=== PATIENT | male | born 1950 | race Caucasian/White ===

== ENCOUNTER 2022-09-17 21:33 | Inpatient (IN) | payer MEDICARE, OTHER ==
[~2022-09-17] VITALS: Ht 175.3 cm; Wt 78.4 kg
--- NOTE | 2022-09-18 00:27 | NUR ---
pt ARRIVES TO [facility]LOOR VIA STRETCHER, AMBULATORY TO HOSPITAL BED WITH RADHA LEMA SBA, GAIT UNSTEADY. pt C/O WEAKNESS. SPO2 WNL 3L OXYGEN BY NC IN PLACE. pt STATES HE IS HOMELESS, LIVES IN [place] THAT IS VERY C[place]. HE WOULD LIKE PLACED IN A SNF AT DISCHARGE. STATES HE IS ON OHP AND HAS MEDICARE AND MEDICAID. NO PCP. STATES HE WILL NEED ONE. REPORTS THAT HE THREW ALL OF HIS MEDICATIONS AWAY AND QUIT TAKING THEM. COOPERATIVE WITH CARES. PRIMARY RN PITA IN ROOM AT THIS TIME. ISOLATION PRECAUTIONS.
--- NOTE | 2022-09-18 00:30 | NUR ---
RECEIVED REPORT FROM TACTICAL DEBRIEFER, DID TWO RN CHECK OF SKIN ON PATIENT WITH RADHA LOBO. PT SETTLED INTO ROOM, GIVEN WARM BLANKETS AND ASSESSMENTS COMPLETED. PT HAS NO COMPLAINT OF PAIN AT THIS TIME, WAS SNORING LIGHTLY, CALL LIGHT IN REACH.
--- NOTE | 2022-09-18 02:12 | NUR ---
IN PT ROOM FOR [id number] - PT APPEARS TO BE RESTING PEACEFULLY, BREATHING EVEN AND UNLABORED, NO INDICATIONS OF PAIN - CALL LIGHT IN REACH
--- NOTE | 2022-09-18 04:32 | NUR ---
IN PT ROOM FOR ROUNDING, PT RESTING ON BACK, BREATHING EVEN AND UNLABORED, NO INDICATIONS OF PAIN OR DISCOMFORT, NO COMPLAINT OF PAIN, CALL LIGHT IN REACH.
--- NOTE | 2022-09-18 05:41 | NUR ---
in pt room for rounding/collection of VS/I&O's. Was able to complete a clean catch Urine sample for pt, sent with labor delivery rn to lab. Pt has no complaint of pain, call light in reach
--- NOTE | 2022-09-18 08:00 | NUR ---
REPORT RECEIVED FROM NIGHT RN AND PT CARE RESUMED. PT. IS DROWSY BUT AWAKENS EASILY TO VOICE. ORIENTED TO ALL BUT DAY. PT. DIAPHORETIC AND SHEETS SATURATED. BEDDING AND GOWN CHANGED. PT. AMBULATED TO CHAIR ON 3L O2. O2 SAT WAS 72% AFTER. RETURNED TO 93% AFTER REST. RIGHT LUNG DIM. THROUGHOUT. ASSESSMENT COMPLETED. PT. ASSISTED WITH BREAKFAST. LEFT RESTING WITH CALL LIGHT IN REACH.
--- NOTE | 2022-09-18 08:52 | NUR ---
MED REC COMPLETE
--- NOTE | 2022-09-18 10:07 | NUR ---
0800- Pt sob , coughing up sputum, vitals are WLN. Pt states that he has no lungs and that his breathing is this short at home. Pt states that he quit a bunch of medications and felt like they made things worse. I let him know that treatment for his lungs would be avalible, he is aware of this and did not want any at this time. Will continue to monitor. Waiting for doctor rounding to identify any futher needs . Pt might benifit from vapotherm for added flow and humidification. Cpt for sputum may be a good idea as well.
--- NOTE | 2022-09-18 10:35 | NUR ---
Spoke with pt and he states he currently is living between his RV and his friends maile. His RV does not run and he states he does not have funds to pay for propane. The electrical and heat work in the RV. Pt is unclear on his hands, arms, legs. Pt states he is disabled and lives on $900 a month for disability. He does not use any DME or home meds. Pt repeatedly stays he is ready to move into a longterm. We discussed he would not be able to do this unless he qualifies. He does not believe he has alf medicaid through the state for placement. He denies working with [facility] Aging and Disability. He asks I call the Disability office as this is whom he currently works with. I will contact [facility] and see if he qualifies for any assist from Aging and disability and [facility]. Called and left a message for [facility] and Soila Bedolla at [facility].
--- NOTE | 2022-09-18 12:52 | NUR ---
DUE TO PRECAUTIONS I AM UNABLE TO VISIT PT IN PERSON. WILL FOLLOW NEEDED
--- NOTE | 2022-09-18 13:15 | NUR ---
ROUNDING ON PT. 02 SAT IS 86% ON 3L. TITRATED 02 TO MAINTAIN 02 SAT. OF 90%. RESP RATE IS 26. PT. BROUGHT DRINKS. LEFT RESTING WITH CALL LIGHT IN REACH.
--- NOTE | 2022-09-18 13:40 | NUR ---
Called [facility] and was transferred by Charlene to the housing program. Left a message updating pt's name, phone number, and needs for either housing or propane. Left my phone number if they have any questions.
--- NOTE | 2022-09-18 14:11 | NUR ---
Spoke with Soila Bedolla. 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 She suggests pt get on the long wall shear operator housing list.
--- NOTE | 2022-09-18 19:27 | NUR ---
received report from offgoing shift, hourly rounding initiated
--- NOTE | 2022-09-18 20:10 | NUR ---
in to change tele battery, urinal empited, vs taken, can of catrina provided, pt wants to remain up to the chair for a little bit longer, no further needs at this time
--- NOTE | 2022-09-18 22:00 | NUR ---
IN PT ROOM FOR ROUNDING. PT RESTING ON SIDE, EYES CLOSED, NO COMPLAINT OF PAIN OR DISCOMFORT. PT CALL LIGHT IN REACH.
--- NOTE | 2022-09-19 00:08 | NUR ---
IN PT ROOM FOR ROUNDING. PT RESTING, EYES CLOSED, NO SIGN OF PAIN OR DISCOMFORT, CALL LIGHT IN REACH.
--- NOTE | 2022-09-19 02:13 | NUR ---
IN PT ROOM FOR ROUNDING. PT 02 SATURATION SLIGHTLY DECREASED, REPOSITIONED PT TO GOOD EFFECT, NO FURTHER COMPLAINT, CALL LIGHT IN REACH.
--- NOTE | 2022-09-19 03:40 | NUR ---
pt HEARD HAVING A COUGHING EPISODE, UPDATED PRIMARY RN PITA. PRIMARY RN PITA TO OFFER PRN COUGH MEDICATION. PER PRIMARY RN, pt REFUSED TESSALON PERLES BUT ACCEPTED MUCINEX (SECOND CHOICE PER EMAR).
--- NOTE | 2022-09-19 03:59 | NUR ---
Pt showing as tachycardic on tele-monitor. Went into pt room to assess and pt has no fever, vs stable, states he is in pain and the only thing that will help is morphine and he doesn't want morphine due to taking it chronically (15 years) previously. Pt asked for and received warm blankets and 02 sensor was repositioned. no further complaints, call light in reach.
--- NOTE | 2022-09-19 04:30 | NUR ---
pt INTERMITTENTLY RESTLESS IN BED AND WHEN MOVING IN BED, SPO2 WAVE FORM IS POOR (DUE TO LOCATION OF SPO2 FINGER SENSOR PROBE). pt VERBALIZES WANT TO REST AND BE LEFT ALONE. pt CURRENTLY ON 3LNC, SPO2 UPPER 80'S BUT TRENDING UPWARDS ONCE pt RESTS STILL IN BED AND WAVE FORM IS WNL. HR TRENDING UPWARDS TO ONE TEENS TO LOW 120'S. PRIMARY RN PITA UPDATED AND MADE AWARE AND TO ASSESS pt FURTHER.
--- NOTE | 2022-09-19 04:36 | NUR ---
In pt room for rounding - pt heart rate tachycardic at 127, 02 saturation reading 86. Increased 02 to 4L NC. Pt also has low-grade fever of 100.3, refusing tylenol, will continue to monitor and notify .
--- NOTE | 2022-09-19 06:45 | NUR ---
call light answered, pt requesting water. fresh water provided and pt assisted with turning on his left side, bed alarm on for safety. pt on 8-9loxymask, cpox already in place with tele, tele leads also replaced as one lead was off of pt. spo2 94%. hr improved now 115-118. rr elevated, approx 28. dr galloway updated and to see pt in approx 30 minutes when he arrives to [facility] floor. no new orders received at this time.
--- NOTE | 2022-09-19 07:30 | NUR ---
REPORT RECEIVED FROM NIGHT RN AND PT CARE RESUMED. PT. IS ALERT AND ORIENTED TO ALL BUT DATE. HR IS 110S AND 02 SAT IS 97% ON 8L. 02 TITRATED TO 7L. RR IS 28 AND BREATHING IS SHALLOW. ASSESSMENT COMPLETED. PT. ASSISTED WITH REPOSITIONING AND BREAKFAST SET UP. LEFT RESTING WITH CALL LIGHT IN REACH.
--- NOTE | 2022-09-19 07:35 | NUR ---
PATIENT UP IN CHAIR BEFORE THIS MARKETING TRAFFIC MANAGER CAME ON SHIFT. CALL LIGHT WITHIN REACH.
--- NOTE | 2022-09-19 08:00 | NUR ---
MEDS ADMINISTERED AND R.T. IN THE ROOM.
--- NOTE | 2022-09-19 09:31 | NUR ---
PATIENT IN CHAIR LAYING ON RIGHT SIDE. VITALS AND I/O'S COMPLETED. PATIENT DID NOT WANT HIS BREAKFAST TRAY TAKEN. PT STATED, "I WILL EAT IT EVENTUALLY". PT ALSO STATED, "I DO NOT WANT MY BLOOD PRESSURE TAKEN AGAIN UNTIL TONIGHT. EVERYTIME I FALL ASLEEP YOU GUYS COME IN AND WAKE ME UP. I HAVE NOT SLEPT IN FOUR DAYS". CALL LIGHT WITHIN REACH.
--- NOTE | 2022-09-19 10:00 | NUR ---
Pt sleeping with [address] Not awakened.
--- NOTE | 2022-09-19 10:02 | NUR ---
PT. O2 SAT IS 97% ON 7L OXYMASK. TITRATED TO 5L. O2 SAT REMAINS 95%. WILL CONTINUE TO MONITOR.
--- NOTE | 2022-09-19 11:05 | NUR ---
PT. RESTING WITH EYES CLOSED. RR IS 27 AND O2 SAT IS94% ON 5L OXYMASK. CALL LIGHT IN REACH.
--- NOTE | 2022-09-19 12:03 | NUR ---
ON PRECAUTIONS, WILL FOLLOW
--- NOTE | 2022-09-19 13:17 | EKG ---
[facility] [address] [place] [address] Signed Sinus tachycardia with premature atrial complexes Low voltage QRS Septal infarct , age undetermined Abnormal ECG No previous ECGs available Confirmed by Erica Patten MD () on 09/19/2022 1:17:21 PM Electronically Signed By: ERICA PATTEN MD 09/19/22 1317 PATIENT NAME: YARIELALPHONSO HAMILTON Electrocardiogram DATE OF : 50 PHYSICIAN: ERICA PATTEN MD REPORT #: [id number] REPORT IS CONFIDENTIAL AND NOT TO BE RELEASED WITHOUT AUTHORIZATION
--- NOTE | 2022-09-19 13:30 | NUR ---
PT. DENIES NEEDS AT THIS TIME. RESTING IN CHAIR AND 02 SAT IS 94% ON 5L.
--- NOTE | 2022-09-19 13:41 | NUR ---
Second call to [facility] asking for any assist they can provide as pt will not qualify for [employer] services.
--- NOTE | 2022-09-19 15:00 | NUR ---
Patient back in chair after bedbath. Call light within reach.
--- NOTE | 2022-09-19 15:03 | NUR ---
PT. BROUGHT HOT CHOCOLATE AND WATER. 02 TITRATED TO 4L OXYMASK. HR IS 90 BPM. CALL LIGHT IN REACH.
--- NOTE | 2022-09-19 19:05 | NUR ---
RECEIVED REPORT FROM OMID GARCIA. PT RESTING IN RECLINER AND APPEARS COMFORTABLE AT THIS TIME. PT ON TELEMETRY SHOWING SINUS RHYTHM, O2 OF 94% ON RA AT THIS TIME. CALL LIGHT WITHIN REACH.
--- NOTE | 2022-09-19 21:30 | NUR ---
IN PT ROOM FOR BURRITO MAKER. PT RESTING IN RECLINER W/EYES CLOSED BUT AWAKENS TO VOICE. PT DROWSY BUT ORIENTED TO ALL BUT DATE/TIME. PT REPORTS NO PAIN, NAUSEA, N/T, DIZZINESS, OR SOB AT THIS TIME. IV SITE WNL, REMDESIVIR INFUSION BEGUN (SEE EMAR). TELEMETRY IN PLACE SHOWS HR SINUS RHYTHM AND HR IN 80'S AT THIS TIME, PULSES PRESENT THROUGHOUT. LUNGS ARE CLEAR IN UPPER BUT DIMINISHED IN BASES. PT IS ON RA W/O2 SATS AT 91% AT THIS TIME, OCCASIONAL PRODUCTIVE COUGH. PRN MUCINEX AND TESSALON PEARLS GIVEN (SEE EMAR). RR IS REGULAR BUT TACHYPNEIC AT 25 AT THIS TIME, PER PREVIOUS REPORT MD IS AWARE. BOWEL TONES ACTIVE X4. NO SIGN OF SKIN BREAKDOWN AT THIS TIME. ASKED PT IF I COULD ASSIST HIM BACK TO BED OUT OF RECLINER AND HE SAID "NO, IM SLEEPING RIGHT HERE". NICOTINE PATCH REMOVED FROM RT SHOULDER. ASKED PT IF I COULD ASSESS BACKSIDE AND HE RESPONDED "NO". PT FOLLOWING DIRECTIONS BUT SHORT RESPONSES TO QUESTIONS AT THIS TIME. CALL LIGHT WITHIN REACH, NO FURTHER NEEDS AT THIS TIME. URINAL AT BEDSIDE.
--- NOTE | 2022-09-20 00:01 | NUR ---
PT RESTING IN RECLINER W/EYES CLOSED. RESPIRATIONS ARE EVEN AND UNLABORED, NO SIGNS OF DISTRESS. O2 VIA PULSE OX READS 92% ON RA AT THIS TIME W/HR LOW 90'S. CALL LIGHT WITHIN REACH.
--- NOTE | 2022-09-20 00:18 | NUR ---
IN PT ROOM TO EMPTY URINAL PT IS AWAKE AND FLIPPING THROUGH TV CHANNELS AT THIS TIME. PT STATES DOES NOT NEED BREATHING TX AT THIS TIME, RR IS 25 AND OCCASIONAL NONPRODUCTIVE COUGH. O2 VIA CPOX READS 90% ON RA AT THIS TIME. ASSISTED PT W/PLACEMENT OF NEW DEPENDS D/T INCONTINENCE. NO SIGNS OF SKIN BREAKDOWN ON BACKSIDE, NEW DEPENDS IN PLACE, ILIR CARE PERFORMED. PT REPORTS NO FURTHER NEEDS AT THIS TIME, CALL LIGHT WITHIN REACH.
--- NOTE | 2022-09-20 02:11 | NUR ---
PT RESTING W/EYES CLOSED IN RECLINER. RESPIRATIONS ARE EVEN AND UNLABORED, NO SIGNS OF DISTRESS. RR AT THIS TIME IS 26, CPOX SHOWS SINUS RHYTHM AT THIS TIME W/O2 AT 93% AND HR AT 82. PT APPEARS COMFORTABLE. CALL LIGHT WITHIN REACH.
--- NOTE | 2022-09-20 03:45 | NUR ---
PT IN RECLINER RESTING W/EYES CLOSED. RESPIRATIONS ARE EVEN AND UNLABORED, NO SIGNS OF DISTRESS. TELEMETRY IN PLACE SHOWING SINUS RHYTHM AT THIS TIME W/HR IN 80'S. CPOX SHOWS O2 AT 89% AT THIS TIME. CALL LIGHT WITHIN REACH.
--- NOTE | 2022-09-20 05:05 | NUR ---
PT RESTING W/EYES CLOSED IN RECLINER. PT RR 26 AT THIS TIME, REGULAR, EVEN, AND NO SIGNS OF DISTRESS. CPOX SHOWS O2 OF 91%. TELEMETRY SHOWS SINUS RHYTHM W/HR IN 80'S. PT APPEARS COMFORTABLE AT THIS TIME. CALL LIGHT WITHIN REACH.
--- NOTE | 2022-09-20 06:10 | NUR ---
PT RESTING W/EYES CLOSED IN RECLINER. PT REPORTS NO PAIN, NAUSEA, N/T, DIZZINESS, SOB AT THIS TIME. NEW PULSE OX IN PLACE. OX READS 92% ON RA AT THIS TIME. TELEMETRY SHOWS SINUS RHYTHM W/HR IN 80'S. URINAL EMPTIED. NO ACUTE CHANGES FROM PREVIOUS ASSESSMENT. COARSENESS IN RUL. RESPIRATIONS ARE 27, EVEN, UNLABORED, NO SIGNS OF DISTRESS. PT STILL HAS OCCASIONAL PRODUCTIVE COUGH. PT DECLINES NEED FOR BREATHING TX AT THIS TIME. CALL LIGHT WITHIN REACH, NO FURTHER NEEDS.
--- NOTE | 2022-09-20 07:45 | NUR ---
REPORT RECEIVED FROM NIGHT RN AND PT CARE RESUMED. PT. IS DROWSY BUT AWAKENS EASILY TO VOICE. HE C/O SORENESS IN HIS LEFT ABDOMEN AND STATES HE HAS "HAD IT FOR YEARS". BOWEL TONES ACTIVE AND ABDOMEN SOFT AND NONDISTENDED. ASSESSMENT COMPLETED. HE IS ON ROOM AIR AND O2 SAT IS 92%. ASSISTED WITH BREAKFAST AND BROUGHT TEA. LEFT RESTING WITH CALL LIGHT IN REACH.
--- NOTE | 2022-09-20 09:48 | NUR ---
ROUNDING ON PT. HE IS EATING AND DRINKING WELL. DENIES NEEDS AT THIS TIME.
--- NOTE | 2022-09-20 11:40 | NUR ---
ROUNDING ON PT. HE IS ON EOB DRINKING SODA, ON ROOM AIR. DENIES NEEDS AT THIS TIME AND STATES HE IS GETTING SHOWER WITH GAUGE CONTROLLER SOON. CALL LIGHT IN REACH.
--- NOTE | 2022-09-20 15:30 | NUR ---
AFTER COVER UP HIS IV AND TELE. HAD PATIENT SIT ON THE SHOWER CHAIR. AND WHEELED HIM INTO THE SHOWER WASHED HIS BODY AND WASHED HIS HAIR. DRIED HIM OFF PUT A CLEAN GOWN AND SOCKS ON ALSO ATTEND ON. THAN PUT NEW TELE LEADS ON. CALLED THE NURSE AND SHE BROUGHT ME A WARM BLANKET AND ALSO A HOT CHOCOLATE AND A JUICE FOR THE PATIENT.
--- NOTE | 2022-09-20 16:41 | NUR ---
PT OUT OF SHOWER. BROUGHT WARM BLANKETS, HOT COCOA AND JUICE. DENIES FURTHER NEEDS. CALL LIGHT IN REACH
--- NOTE | 2022-09-20 17:42 | NUR ---
PT EATING DINNER. DENIES NEEDS AT THIS TIME. GOOD APPETITE.
--- NOTE | 2022-09-20 19:05 | NUR ---
RECEIVED REPORT FROM OMID GARCIA. PT RESTING IN BED WATCHING TV. CALL LIGHT WITHIN REACH. PT ON TELE AND CPOX AT THIS TIME, HR IN LOW 90'S AND O2 AT 92%. RESPIRATIONS ARE EVEN AND UNLABORED, CALL LIGHT WITHIN REACH, PT REPORTS NO NEEDS AT THIS TIME.
--- NOTE | 2022-09-20 21:50 | NUR ---
IN PT ROOM FOR ORTHOPTIST, ASSESSMENT. PT IS RESTING IN BED ALERT AND ORIENTED TO ALL BUT DATE/TIME. PT REPORTS NO PAIN, NAUSEA, N/T, DIZZINESS, SOB AT THIS TIME. PT REQUESTS PRN COUGHING MEDS, MUCINEX AND TESSALON GIVEN (SEE EMAR). IV SITE WNL, REMDESIVIR STARTED (SEE EMAR). LUNGS ARE DIMINISHED IN LOWER AND TIGHT IN UPPER LOBES, PT REQUESTS BREATHING TX, LAURA RN IN ROOM AT THIS TIME. PULSES PRESENT THROUGHOUT, SKIN IS INTACT/NO SIGNS OF BREAKDOWN. TELE SHOWS SINUS RHYTHM AT THIS TIME W/HR IN 80'S, O2 VIA CPOX IS 94%. RR IS EVEN AND UNLABORED, RR IS 26. CALL LIGHT WITHIN REACH, NO FURTHER NEEDS AT THIS TIME.
--- NOTE | 2022-09-20 22:20 | NUR ---
IN PT ROOM FOR BEEPING PUMP. PT NOW SALINE LOCKED D/T FINISHED INFUSION. PT RESTING W/EYES CLOSED. RESPIRATIONS ARE EVEN AND UNLABORED. TELE SHOWS SR W/HR IN LOW 90'S. O2 VIA CPOX SHOWS 93%. CALL LIGHT WITHIN REACH.
--- NOTE | 2022-09-20 23:39 | NUR ---
PT RESTING IN BED W/EYES CLOSED. RESPIRATIONS ARE EVEN AND UNLABORED, NO SIGNS OF DISTRESS. TELEMETRY SHOWS SINUS RHYTHM AT THIS TIME W/HR MID 80'S, CPOX 90% AT THIS TIME.
--- NOTE | 2022-09-21 00:32 | NUR ---
PT RESTING IN BED WATCHING TV AT THIS TIME. CRANBERRY JUICE PROVIDED. PT OCCASIONAL, PRODUCTIVE COUGH. TELEMETRY SHOWS SINUS RHYTHM W/HR IN 80'S. CPOX SHOWS O2 SAT OF 95%. CALL LIGHT WITHIN REACH.
--- NOTE | 2022-09-21 02:40 | NUR ---
PT RESTING W/EYES CLOSED. RESPIRATIONS ARE EVEN AND UNLABORED, NO SIGNS OF DISTRESS. CALL LIGHT WITHIN REACH. TELEMETRY SHOWS SINUS RHYTHM W HR IN 70'S, CPOX AT 92% AT THIS TIME.
--- NOTE | 2022-09-21 04:27 | NUR ---
IN PT ROOM FOR ASSESSMENT, TELE BATTERY CHANGE, AND EMPTYING OF URINAL. PT RESTING ON RT SIDE W/EYES CLOSED AT THIS TIME, AWAKENS TO VOICE. LUNGS ARE DIM AND TIGHT THROUGHOUT, COUGH IS FREQUENT AND PRODUCTIVE W/THICK WHITE SPUTUM. NO ACUTE CHANGES FROM PREVIOUS ASSESSMENT. PT DOES NOT REPORT ANY PAIN, N/T, SOB, DIZZINESS, OR NAUSEA AT THIS TIME. CRANBERRY JUICE PROVIDED. SKIN REMAINS INTACT, NO SIGNS OF REDNESS OR BREAKDOWN AT THIS TIME. TELE SHOWS SINUS RHYTHM W/HR 80'S AND CPOX SHOWS O2 OF 90% ON RA AT THIS TIME. CALL LIGHT WITHIN REACH, NO FURTHER NEEDS AT THIS TIME.
--- NOTE | 2022-09-21 08:25 | NUR ---
PATIENT SITTING UP IN BED COUGHING, ALERT AND ORIENTED X4. PATIENT REPORTS HE DID NOT SLEEP WELL DUE TO COUGHING. TESSALON PERLES 100MG AND MUCINEX 600MG PO ADMIN AT THIS TIME. VITAL SIGNS ARE STABLE. SP02 93% ON ROOM AIR. FRESH WATER PROVIDED TO PATIENT. LUNG SOUNDS ARE DIMINISHED THROUGHOUT. TELE IN PLACE, NSR-PULSE RATE 80-90'S. PATIENT DENIES NEEDS AT THIS TIME. CALL LIGHT WITHIN REACH.
--- NOTE | 2022-09-21 11:28 | NUR ---
PATIENT RESTING IN BED, EYES CLOSED, RESPIRATIONS EVEN/NON LABORED. SP02 92% ON ROOM AIR. NO CURRENT NEEDS, PERSONAL SUPPLIES AND CALL LIGHT WITHIN REACH.
--- NOTE | 2022-09-21 19:05 | NUR ---
RECEIVED REPORT FROM ANTOLIN GARCIA. PT RESTING IN BED WATCHING TV. PT ON TELEMETRY SHOWING SINUS RHYTHM W/HR IN LOW 90'S AND CPOX SHOWS O2 AT 93%. RESPIRATIONS ARE EVEN AND UNLABORED, NO SIGNS OF DISTRESS. CALL LIGHT WITHIN REACH. NO FURTHER NEEDS AT THIS TIME.
--- NOTE | 2022-09-21 21:00 | NUR ---
IN PT ROOM FOR ECOLOGICAL RISK ASSESSOR, VS, I/O'S, AND ASSESSMENT. PT REPORTS NO PAIN, NAUSEA, N/T, DIZZINESS, SOB AT THIS TIME. PT ON RA W/CPOX SHOWING O2 SAT OF 93%. TELE SHOWS HR LOW 90'S AT THIS TIME, RHYTHM IS SR. LUNGS ARE TIGHT AND DIM THROUGHOUT, PT DENIED NEED FOR BREATHING TX AT THIS TIME. PT HAS FREQUENT, PRODUCTIVE COUGH W/WHITE PHLEGM PRODUCTION, PRN MUCINEX & PEARLS GIVEN (SEE EMAR). IV SITE WNL, NO REDNESS/PAIN PRESENT, IV REMDESEVIR STARTED (SEE EMAR). SKIN IS INTACT, NO SIGNS OF REDNESS OR BREAKDOWN AT THIS TIME. CRANBERRY JUICE AND WARM BLANKET PROVIDED. CALL LIGHT WITHIN REACH, NO FURTHER NEEDS AT THIS TIME.
--- NOTE | 2022-09-21 21:40 | NUR ---
IN PT ROOM FOR BEEPING PUMP D/T FINISHED INFUSION. PT NOW SALINE LOCKED. PT RESTING W/EYES CLOSED LYING ON RT SIDE. RESPIRATIONS ARE EVEN AND UNLABORED, NO SIGNS OF DISTRESS. CALL LIGHT WITHIN REACH.
--- NOTE | 2022-09-22 00:06 | NUR ---
PT RESTING W/EYES CLOSED. RESPIRATIONS ARE EVEN AND UNLABORED, NO SIGNS OF DISTRESS. TELEMETRY SHOWS SR W/HR IN 80'S, CPOX SHOWS O2 OF 92% AT THIS TIME ON RA. CALL LIGHT WITHIN REACH. PT APPEARS COMFORTABLE AT THIS TIME.
--- NOTE | 2022-09-22 01:22 | NUR ---
PT RESTING W/EYES CLOSED ON RT SIDE. PT TELE SHOWS SR W/HR IN 80'S. CPOX SHOWS O2 ON RA OF 90. RESPIRATIONS ARE EVEN AND UNLABORED, NO SIGNS OF DISTRESS. CALL LIGHT WITHIN REACH.
--- NOTE | 2022-09-22 03:45 | NUR ---
IN PT ROOM FOR ASSESSMENT AND SAP SECURITY CONSULTANT. PT STATES "I CANT STOP COUGHING, I CANT GET ANY SLEEP WITH THIS COUGHING". CALLED MD, ORDERS PROVIDED. MENTHOL LOZENGE GIVEN (SEE EMAR). PT RESTING IN BED. PER TELEMETRY SR, HR 80-90'S, CPOX AT 95% AT THIS TIME. NO ACUTE CHANGES FROM PREVIOUS ASSESSMENT. PT STATES HE DOES NOT WANT A BREATHING TX AT THIS TIME. LUNGS ARE DIM/TIGHT THROUGHOUT. HOT COCOA AND OJ PROVIDED. CALL LIGHT WITHIN REACH, NO FURTHER NEEDS AT THIS TIME.
--- NOTE | 2022-09-22 04:52 | NUR ---
PT RESTING W/EYES CLOSED. RESPIRATIONS ARE EVEN AND UNLABORED, NO SIGNS OF DISTRESS. CALL LIGHT WITHIN REACH. TELE IN PLACE SHOWING SR, HR IN 80'S, O2 92% AT THIS TIME VIA CPOX.
--- NOTE | 2022-09-22 07:36 | NUR ---
Recieved report from mine shifter nurse. Pt resting in bed.
--- NOTE | 2022-09-22 08:00 | NUR ---
Did not receive a return call from [facility] or the [facility] from my phone calls on Thr and Thursday. Will discuss with Dr. Almanza in the [phone] meeting.
--- NOTE | 2022-09-22 08:52 | NUR ---
IN PT ROOM. VITALS AND IS AND OS COMPLETE. PT REQ COUGH DROP. PT UPSET THAT HE HAS NOT RECIEVED COUGH DROP, RN NOTIFIED. PT DECLINED ANY NEEDS AT THIS TIME INCLUDING MORE WATER AND BLANKET. NO FURTHER NEEDS. CALL LIGHT WITHIN REACH
--- NOTE | 2022-09-22 09:30 | NUR ---
Spoke with Dr. Almanza. Pt is dischargeable today. I will call [facility], [facility] to check if they can help this pt. I will also cont. to get this pt [facility]. I contacted them x2 last week and have not received a call back.
--- NOTE | 2022-09-22 10:30 | NUR ---
Called [facility] and they stated it would be best to call [facility] for emergency help for propane. [facility] is scheduling out into October for evaluations to assist pt. This would not be immediate help. Attempted to contact [facility] and they are closed today. I will give Wong the phone numbers for [facility] and for [facility]. I discussed this pt with Soila Bedolla at [facility]. 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 Pt will need to dc to his or garage where he has been staying and follow up with [facility] and [facility] tomorrow.
--- NOTE | 2022-09-22 10:46 | NUR ---
PT NOW SALINE LOCKED, RESTING IN BED WATCHING TV. DENIES NEEDED ANYTHING.
--- NOTE | 2022-09-22 12:56 | NUR ---
PT IS ON PREAUTIONS AND M/S STAFF HAVE INFORMED ME HE IS TO DC LATER TODAY. WILL FOLLOW NEEDED
--- NOTE | 2022-09-22 14:06 | NUR ---
Spoke with Anthony from [facility], she is working on scheduling this pt with a PCP, but is awaiting a return call from the PCP.
--- NOTE | 2022-09-22 15:15 | NUR ---
PER PATIENT REQUEST PATIENT GIVEN MORE LOZENGES, PT RESTING WELL IN BED. URINAL EMPTIED.
--- NOTE | 2022-09-22 18:49 | NUR ---
PATIENT GIVEN 5MG OXYCODONE FOR 8/10 LEFT SIDE PAIN.
--- NOTE | 2022-09-22 19:43 | NUR ---
REPORT RECEIVED FROM DAY SHIFT RN. PT SITTING IN RECLINER ALERT AND ORIENTED. DENIES NEEDS. WHITE BOARD UPDATED. CALL LIGHT IN REACH.
--- NOTE | 2022-09-22 20:36 | NUR ---
PT SITTING IN RECLINER. DECLINES TO GO TO BED HE CAN NOT GET COMFORTABLE IN BED. C/O LEFT SIDE RIB PAIN THAT INCREASES WITH COUGH AND MOVEMENT. PRN FOR COUGH ADMIN PER EMAR. WARM COMPRESS PROVIDED FOR COMFORT. ASSISTED PT TO REPOSITION IN RECLINER WITH PILLOWS. PT DENIES SOB. SpO2 MID 90'S ON RA. RESPIRATIONS EVEN. EVENING ASSESSMENT COMPLETE. PT DENIES QUESTIONS OR CONCERNS. CALL LIGHT IN REACH.
--- NOTE | 2022-09-22 22:59 | NUR ---
PT REPORTS LEFT SIDE PAIN 04/09. DR. FELIX NOTIFIED. NEW TELEPHONE ORDERS RECEIVED VERIFIED WITH READBACK METHOD. IN TO ADMIN PRN. PT REPORTS HE IS FEELING BETTER AFTER PRN FOR COUGH ADMIN. DENIES SOB. REMAINS SITTING IN RECLINER. SATS MID 90'S ON RA. PUDDING PROVIDED FOR SNACK. NO FURTHER NEEDS.
--- NOTE | 2022-09-22 23:59 | NUR ---
PHONE CALL TO MD, NOTIFIED OF pt REPORTED SOB, YELLING "I CAN'T BREATHE". RR 28-30. pt COMPLAINING OF LEFT SIDE PAIN. ORDERS RECEIVED AND VERIFIED USING REPEAT BACK METHOD. PRIMARY RN REMAINS IN ROOM, UPDATED ON ORDERS.
--- NOTE | 2022-09-23 00:08 | NUR ---
IN TO REPLACE CPOX MONITOR. PT IN RECLINER ROCKING BACK AND FORTH. STATES "I CAN'T BREATHE." SpO2 MID 90'S ON RA. RR 28-30. PT GRUNTING. LUNGS DIM/TIGHT SOUNDING. BREATHING TX ADMIN. PRN FOR PAIN/SOB ADMIN PER EMAR. PT REPORTS NO RELIEF WITH 2MG IV MORPHINE. ADDITIONAL 2 MG GIVEN. PT REMAINS IN RECLINER GRUNTING AND ROCKING BACK AND FORTH. RT IN ROOM FOR ADDITIONAL BREATHING TX. PT ON RA. SpO2 LOW 90'S. HR ONR TEENS-120'S. THIS RN REMAINS IN ROOM.
--- NOTE | 2022-09-23 00:29 | NUR ---
DR. FELIX UPDATED ON PT STATUS. NEW TELEPHONE ORDERS RECEIVED VERIFIED WITH READBACK METHOD. PT ON 5L/OM AT THIS TIME. SpO2 89-90%. HR 120'S.
--- NOTE | 2022-09-23 01:23 | NUR ---
PT BACK TO FLOOR FROM CT. DROWSY. 2PA TO BED. HOB ELEVATED. RR 36. PT GRUNTING. SpO2 LOW 80'S WITH ACTIVITY. OXYGEN TITRATED TO MAINTAIN SATS >90%. 13L/OM ON AT THIS TIME. HR 120-130'S. PT RESTING WITH EYES CLOSED. BED ALARM FOR SAFETY. PT IN VIEW OF NURSES STATION.
--- NOTE | 2022-09-23 01:23 | NUR ---
IV PLACED TO LEFT AC FOR CT SCAN, 20G, GOOD BLOOD RETURN, FLUSHES WITHOUT RESISTANCE. PT GIVEN ATIVAN PER EMAR. PT ESCORTED TO CT SCAN, O2 SATS MONIOTRED, DOWN TO LOW 80'S, PLACED ON 6L OXYMASK DURING SCAN AND TRANSPORT. PT RETURNED TO ROOM AND ASSISTED TO BED. O2 SATS 86%, INCREASED TO 15L OXYMASK TO OBTAIN SATS >90, TITRATED TO 13L.
--- NOTE | 2022-09-23 02:16 | NUR ---
UPDATED ON CT RESULTS AND PT STATUS. NO NEW ORDERS AT THIS TIME. PT RESTING WITH EYES CLOSED. RESPIRATIONS 40 AND LABORED. PT GRUNTING. 13L/OM IN PLACE. SpO2 LOW 90'S. HR 120'S.
--- NOTE | 2022-09-23 04:02 | NUR ---
PT GETTING OUT OF BED. DROWSY AND UNSTEADY. AT SIDE OF BED WITH 1PA TO VOID. INCONTINENT OF URINE WELL. ATTEMPTED TO CHANGE BRIEF. PT AWOKE AGITATED AND CONFUSED. ATTEMPTED TO REORIENT WITHOUT SUCCESS. REPORTS PAIN BUT REFUSES PRN FOR PAIN WHEN OFFERED. BREATHING LABORED. PT PULLING OXYGEN OFF AND REFUSING TO LET STAFF PUT BACK ON. SpO2 85-91% ON RA. EPISODES OF APNEA NOTED. HOB ELEVATED. BED ALARM FOR SAFETY. CALL LIGHT IN REACH. PT IN VIEW OF NURSES STATION.
--- NOTE | 2022-09-23 05:04 | NUR ---
RESPIRATIONS 40 AND LABORED. PT CONTINUES TO GRUNT WITH PERIODS OF APNEA NOTED. OCCASIONAL GRIMACE NOTED. PRN FOR PAIN/SOB ADMIN PER EMAR. 5L/OM IN PLACE. SpO2 LOW 90'S. HR ONE TEENS TO 120'S. ATTEMPTED TO PUT BRIEF AND GOWN ON PT, PT BECAME AGITATED. PT COVERED WITH BLANKETS. HOB ELEVATED. BED ALARM FOR SAFETY. PT IN VIEW OF NURSES STATION.
--- NOTE | 2022-09-23 07:20 | NUR ---
Recieved report from maintenance technician 3rd shift RN, patient sitting up in bed with blow by oxygen at 5liters.
--- NOTE | 2022-09-23 08:11 | NUR ---
PATIENT AWAKE, STAFF IN ROOM AND ATTEMPTING TO HAVE PATIENT SIT UP FOR BREAKFAST. PATIENT REFUSES OXYGEN, BUT HAS MASK HANGING AROUND HIS NECK, O2 SATS ARE 90%. PATIENT INSISTS THAT HE IS GOING HOME. THIS NURSE ADVISED PATIENT THAT HE WOULD LIKELY HAVE A BAD OUTCOME IF HE LEFT TODAY, PATIENT SAID, "I'D RATHER BE ." CALL TO DR. FELIX, PLAN TO GIVE PATIENT MORPHINE NEEDED TO HELP EASE PATIENT'S RESPIRATORY RATE.
--- NOTE | 2022-09-23 08:40 | NUR ---
Attempted to call [facility] and they are not open. Will try again at 0930.
--- NOTE | 2022-09-23 10:00 | NUR ---
Called and reached Khoa at [facility]. He states they can give this pt a voucher for propane. Pt needs to arrive by 11:00. Spoke with Dr. Regan and pt has decided to go AMA. She would like pt to have 02 on dc and 02 qualifier ordered.
--- NOTE | 2022-09-23 10:02 | NUR ---
REPORT FROM CASE MANAGEMENT, PATIENT IS TO GO HOME WITH NEPHEW OR A TAXI TO [facility]. 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
--- NOTE | 2022-09-23 10:15 | NUR ---
Spoke with pt and updated about [facility]. I will provide him with a Taxi ticket to [facility]. He is attempting to call his nephew, he refers to him as the, "Dumb Ass". He is unable to reach his nephew. Discussed [facility] and the need to arrive by 11:00 and they will provide him with a voucher which is valid for 5 days. Pt asks for his clothing. Attempted to call [facility] to check if they can also provide the tank. Left message x 2.
--- NOTE | 2022-09-23 10:17 | NUR ---
PATIENT SIGNED AMA FORM. PATIENT IS GETTING DRESSED, REFUSED STAFF HELP. X2 IV'S REMOVED WITH CATHETER INTACT. VSS.
--- NOTE | 2022-09-23 10:35 | NUR ---
I was able to reach Khoa at [facility]. They cannot provide a tank. Let him know we are attempting to reach his nephew to bring the tanks. He states he will be there until 11:30, but pt must arrive with time to complete paperwork. Called to schedule the taxi and per dispatch someone else called and they are on their way. REturned to nurses station and updated. Into pts room. An 02 qualifier was completed and pt has tank and 02 in the room. He removes 02 and does not want to wear. I asked if he plans on using at home and he states, "NO". We discussed if he is not going to use we will not send with him. He again states he will not use his 02.
--- NOTE | 2022-09-23 10:50 | NUR ---
Spoke with Daphne floor aid. She has been waiting for the Taxi to arrive and they have not arrived. Called the taxi and they state they will have Jamil from dispatch call me. Spoke with Jamil, he asks if the pt is covid + and I confirmed. I also let him know pt believes he has been covid + for 3 weeks and we have him in an N95 mask and I have alerted [facility] also. He states the taxi arrived at 1030 and pt was not ready so they left. UPdated pt must be at [facility] near 1100 to get his voucher. Jamil states they will send the taxi back.
== END 2022-09-23 10:40 | disposition left against medical advice (07) | DRG 177 ==
LOC: ED 21:33 → MS 21:36
PROVIDERS: ADMIT Family Medicine; ATTEND Internal Medicine
PROC: XW033E5 Introduction of Remdesivir Anti-infective into Peripheral Vein, Percutaneous Approach, New Technology Group 5 (ICD-10-PCS; principal; 2022-09-18)
PROC: 3E0333Z Introduction of Anti-inflammatory into Peripheral Vein, Percutaneous Approach (ICD-10-PCS; 2022-09-18)
DX: U07.1 COVID-19 (principal); J12.82 Pneumonia due to coronavirus disease 2019; J96.01 Acute respiratory failure with hypoxia; J44.1 Chronic obstructive pulmonary disease with (acute) exacerbation; J44.0 Chronic obstructive pulmonary disease with (acute) lower respiratory infection; Z66 Do not resuscitate; F17.210 Nicotine dependence, cigarettes, uncomplicated; Z87.01 Personal history of pneumonia (recurrent); Z91.199 Patient's noncompliance with other medical treatment and regimen due to unspecified reason
CPT/HCPCS: 36415; 71045; 71260; 80053; 81003; 82803; 83605; 83735; 83880; 84100; 85007; 85025; 86140; 87040; 87502; 93005; 93010; 94640; 94660; 94760; 94761; 94762; 97116; 97162; 97166; 97530; C9803; J0248; J1100; J1650; J2060; J2270; J2930; J3475; J7050; J7060; Q0177; Q9967; U0003

== ENCOUNTER 2024-11-01 19:20 | Emergency (ER) | payer MEDICARE, OTHER ==
[~2024-11-01] VITALS: Ht 175.3 cm; Wt 86.6 kg
--- OUTSIDE RECORDS SUMMARY | 2024-11-01 19:27 | XMS ---
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 [facility]12 MO.) [facility] TIARA Mojica TOTAL 4 NOTE: Visits indicate total known visits. ED/UCC VISIT TRACKING (12 MO.) 11/01/2024 19:21 [facility] TYPE: Emergency COMPLAINT: - SOB,CHEST PAIN,FEET SWOLLEN 10[facility]04[facility]2024 00[facility] [place] DIAGNOSES: - Acute and chronic respiratory failure with hypoxia - Alcohol dependence, uncomplicated - Chronic obstructive pulmonary disease with (acute) exacerbation - Influenza due to other identified influenza virus with other respiratory manifestations - Iron deficiency anemia, unspecified - Nicotine dependence, unspecified, uncomplicated - Pneumonia, unspecified organism - Shortness of Breath 09/27/2024 02:[address] [facility] Jose Armando [place] ([place]) TYPE: Emergency DIAGNOSES: - Acute respiratory failure with hypoxia - Influenza due to other identified influenza virus with other respiratory manifestations - Unspecified fall, initial encounter - Fall 08/23/2024 19:[address] [facility] Jose Armando [place] ([place]) TYPE: Emergency DIAGNOSES: - Dyspnea, unspecified - Shortness of Breath - SOB congestion INPATIENT VISIT TRACKING (12 MO.) 10/04/2024 00:[address] [facility] [place] ([place] TYPE: Medical Surgical DIAGNOSES: - Acute and chronic respiratory failure with hypoxia - Alcohol dependence, uncomplicated - Chronic obstructive pulmonary disease with (acute) exacerbation - Influenza due to other identified influenza virus with other respiratory manifestations - Iron deficiency anemia, unspecified - Nicotine dependence, unspecified, uncomplicated - Pneumonia, unspecified organism 09/27/2024 02:[address] [facility] Jose Armando [place] ([place]) TYPE: Surgical Services DIAGNOSES: - Acute respiratory failure with hypoxia - Anemia, unspecified - Chronic obstructive pulmonary disease with (acute) exacerbation - Homelessness unspecified - Influenza due to other identified influenza virus with other respiratory manifestations - Iron deficiency anemia, unspecified - Sepsis, unspecified organism - Unspecified fall, initial encounter [email or web address]
[2024-11-01] MEDS ORDERED: CEFTRIAXONE SODIUM 2 GM in SODIUM CHLORIDE 0.9% 100 ML IV ONE (19:45)
[2024-11-01 19:47] LABS: HEMATOCRIT 34.5 % (35.0-50.0); HEMOGLOBIN 11.7 g/dL (12.0-18.0); MCH 31.3 (27-36); MCV 92.1 fl (81-99); PLATELET COUNT 335 K/uL (140-440); RBC 3.75 M/ul (4.3-5.7)
[2024-11-01] MEDS ORDERED: MORPHINE SULFATE 4 MG/ML VIAL IV ONE (20:00)
[2024-11-01 20:05] LABS: ALBUMIN 3.2 g/dL (3.4-5.0); ALBUMIN/GLOBULIN RATIO 0.84 (1.1-2.4); ANION GAP 14.5 (7-21); BILIRUBIN, TOTAL 0.5 mg/dL (0.2-1.0); BUN/CREATININE RATIO 19.17 (6.0-28.6); CALCIUM 8.8 mg/dL (8.5-10.1); CREATININE, SERUM 0.73 mg/dL (0.70-1.30); POTASSIUM 3.5 mmol/L (3.5-5.1)
[2024-11-01 20:07] LABS: LACTIC ACID, BLOOD 2.5 mmol/L (0.4-2.0)
[2024-11-01 20:10] LABS: BASOPHILS, MANUAL DIFF 2; EOSINOPHILS, MANUAL DIFF 2; LYMPHOCYTES, MANUAL DIFF 41; MONOCYTES, MANUAL DIFF 1; NEUTROPHILS, MANUAL DIFF 54
[2024-11-01] MEDS ORDERED: SODIUM CHLORIDE 0.9% 500 ML IV PRN (20:15)
[2024-11-01 20:17] LABS: INR 1.11 (0.80-1.30); PARTIAL THROMBOPLASTIN TIME 33.1 Sec (22.9-41.3); PROTIME 14.3 Sec (11.2-14.2)
[2024-11-01] MEDS ORDERED: CEFTRIAXONE SODIUM 2 GM VIAL ONE (21:31)
[2024-11-01] MEDS ORDERED: CEFDINIR300 MG PO (23:43)
[2024-11-01] MEDS ORDERED: FUROSEMIDE 20 MG/2 ML VIAL IV ONE (23:45)
[2024-11-01] MEDS ORDERED: CEFDINIR 300 MG HOME.PACK PO ONE (23:45)
[2024-11-01] MEDS ORDERED: methylPREDNISolone 4 MG HOME.PACK PO ONE (23:45)
[2024-11-01] MEDS ORDERED: INHALER, ASSIST DEVICES 1 EACH SPACER MISC ONE (23:45)
[2024-11-01] MEDS ORDERED: ALBUTEROL SULFATE 8 GM HOME.PACK INH ONE (23:45)
[2024-11-01 23:46] LABS: INFLUENZA B NAA NEGATIVE (NEGATIVE); RESPIRATORY SYNCYTIAL VIR NAA NEGATIVE (NEGATIVE)
[2024-11-01] MEDS ORDERED: LASIX20 MG PO (23:47)
[2024-11-02] MEDS ORDERED: AZITHROMYCIN 250 MG HOME.PACK PO ONE (00:30)
[2024-11-02 01:13] LABS: BILIRUBIN, URINE NEGATIVE (negative); BLOOD/HGB, URINE NEGATIVE (Negative); KETONE, URINE NEGATIVE (Negative); LEUK ESTERASE, URINE NEGATIVE (negative); NITRITE, URINE NEGATIVE (negative)
[2024-11-02 04:57] VITALS: BP 111/74
--- NOTE | 2024-11-03 21:07 | EKG ---
[facility] [address] [place] [address] Signed Sinus tachycardia with premature atrial complexes Low voltage QRS Cannot rule out Anteroseptal infarct (cited on or before 19-SEP-2022) Abnormal ECG When compared with ECG of 19-SEP-2022 05:37, Questionable change in initial forces of Anteroseptal leads Confirmed by Lindsay Holbrook MD ([id number]) on 11/03/2024 9:07:48 PM Electronically Signed By: LINDSAY HOLBROOK MD 11/03/242106 PATIENT NAME: ALPHONSO SALDIVAR Electrocardiogram DATE OF : 50 PHYSICIAN: LINDSAY HOLBROOK MD REPORT #: [id number] REPORT IS CONFIDENTIAL AND NOT TO BE RELEASED WITHOUT AUTHORIZATION
== END 2024-11-02 07:56 | disposition home or self-care (01) ==
LOC: ED 19:20
PROVIDERS: Family Medicine
DX: J18.9 Pneumonia, unspecified organism (principal)
CPT/HCPCS: 36415; 71045; 80053; 81003; 83605; 83880; 84484; 85025; 85610; 85730; 87502; 93005; 93010; 94640; 96374; 96375; 99285-25; G0480; J1940; J2270; J7040; U0002